=== PATIENT | female | born 1980 | race Caucasian/White ===

== ENCOUNTER 2016-09-11 06:23 | Inpatient (IN) | payer BC ==
[~2016-09-11] VITALS: Ht 175.3 cm; Wt 88.6 kg
[2016-09-11] VITALS (40 sets, daily range): BP systolic 96–142; BP diastolic 52–86; PULSE 52–99; TEMP 98–98.9
[~2016-09-11 06:23] MED LIST: MOTRIN 800800 MG/TAB PO
[2016-09-11] MEDS ORDERED: PRENATAL1 TA7 PO (07:31)
[2016-09-11] MEDS ORDERED: DULCOLAX STOOL100 MG PO (07:32)
[2016-09-11] MEDS ORDERED: FERROUS SULFATE65 MG PO (07:32)
[2016-09-11 08:31] LABS: BASO % 0.3 % (0.0-2.0); EOS # 0.1 (0.0-0.7); EOS % 0.6 % (0-4.0); GRAN # 4.5 (1.4-6.5); LYMPH # 2.6 (1.2-3.4); LYMPH % 32.1 % (20.0-51.0); MEAN CELL VOLUME 94 fl (80.0-100.0); MEAN CORPUSCULAR HGB CONC 34 g/dl (33.0-37.0); MEAN PLATELET VOLUME 12.2 fl (7.4-10.4); MONO # 0.8 (0.1-0.6); MONO % 9.6 % (1.7-9.3); PLATELET COUNT 156 K/mm3 (130-400); RED BLOOD COUNT 3.54 M/mm3 (4.10-5.30); REDCELL DISTRIBUTION WIDTH-CV 13.2 % (11.5-14.5); WHITE BLOOD COUNT 7.9 K/mm3 (4.8-10.8)
[2016-09-11 08:32] LABS: HEMATOCRIT 33.3 % (37.0-47.0); HEMOGLOBIN 11.3 g/dl (12.5-16.0); MEAN CORPUSCULAR HEMOGLOBIN 32 pg (27.0-31.0)
[2016-09-12 00:01] VITALS: BP 128/72; PULSE 70; TEMP 98.2
[2016-09-12 04:21] VITALS: BP 110/59; PULSE 62; TEMP 98.4
[2016-09-12] MEDS ORDERED: PERCOCET 325 MG1 TA2 PO (07:05)
[2016-09-12] MEDS ORDERED: IBU800 M1 PO (07:05)
[2016-09-12 07:47] VITALS: BP 106/73; PULSE 85; TEMP 97.4
[2016-09-12 15:31] VITALS: BP 118/70; PULSE 72; TEMP 98.6
== END 2016-09-12 17:20 | disposition home or self-care (01) | DRG 775 ==
LOC: OB 06:23 → LDR 07:11 → OB 07:11
PROVIDERS: Obstetrics & Gynecology
PROC: 10E0XZZ Delivery of Products of Conception, External Approach (ICD-10-PCS; principal; 2016-09-11)
PROC: 0KQM0ZZ Repair Perineum Muscle, Open Approach (ICD-10-PCS; 2016-09-11)
PROC: 3E033VJ Introduction of Other Hormone into Peripheral Vein, Percutaneous Approach (ICD-10-PCS; 2016-09-11)
DX: O48.0 Post-term pregnancy (principal); O70.1 Second degree perineal laceration during delivery; Z3A.40 40 weeks gestation of pregnancy; Z37.0 Single live birth
CPT/HCPCS: J2405; J2590; J7120

== ENCOUNTER → 2024-05-21 | Outpatient (CLI) | payer BC ==
[~2024-05-21] MED LIST changes: +DULCOLAX STOOL100 MG PO; +FERROUS SULFATE65 MG PO; +IBU800 M1 PO; +PERCOCET 325 MG1 TA2 PO; +PRENATAL1 TA7 PO
== END ==
LOC: MC.RAD 08:28
DX: Z12.31 Encounter for screening mammogram for malignant neoplasm of breast (principal); N64.89 Other specified disorders of breast